=== PATIENT | male | born 1945 | race Hispanic/Latino ===

== ENCOUNTER → 2019-10-29 | Outpatient (CLI) | payer OTHER, MEDICARE | END | disposition home or self-care (01) | LOC: RAH 15:20 | PROVIDERS: ATTEND Nurse Practitioner Family | DX: J84.10 Pulmonary fibrosis, unspecified (principal); R91.8 Other nonspecific abnormal finding of lung field; M47.815 Spondylosis without myelopathy or radiculopathy, thoracolumbar region | CPT/HCPCS: 71046 ==

== ENCOUNTER → 2020-05-07 | Outpatient (CLI) | payer OTHER, MEDICARE | END | disposition home or self-care (01) | LOC: RAH 11:45 | PROVIDERS: ATTEND Internal Medicine | DX: R06.02 Shortness of breath (principal); M47.814 Spondylosis without myelopathy or radiculopathy, thoracic region | CPT/HCPCS: 71046 ==

== ENCOUNTER 2020-06-27 14:00 | Emergency (ER) | payer OTHER, MEDICARE ==
[2020-06-27] MEDS ORDERED: PROPOFOL 1000 MG/100 ML 0 ML IV ONE (15:44)
[2020-06-27] MEDS ORDERED: PROPOFOL 10 MG/ML 20ML VIAL IV ONE (15:59)
== END 2020-06-27 19:02 | disposition home or self-care (01) ==
LOC: EDH 14:00
DX: S43.005A Unspecified dislocation of left shoulder joint, initial encounter (principal); E11.9 Type 2 diabetes mellitus without complications; I10 Essential (primary) hypertension; Z87.891 Personal history of nicotine dependence; W18.39XA Other fall on same level, initial encounter; Y93.89 Activity, other specified; Y92.89 Other specified places as the place of occurrence of the external cause; Y99.8 Other external cause status
CPT/HCPCS: 23650; 70450; 73020; 73030; 99285; J2704

== ENCOUNTER → 2020-12-17 | Outpatient (CLI) | payer OTHER, MEDICARE | END | disposition home or self-care (01) | LOC: RAH 13:13 | PROVIDERS: ATTEND Internal Medicine | DX: J84.10 Pulmonary fibrosis, unspecified (principal) | CPT/HCPCS: 71046 ==

== ENCOUNTER → 2021-10-06 | Outpatient (CLI) | payer OTHER | END | disposition home or self-care (01) | LOC: SHCH 13:16 | PROVIDERS: ATTEND Internal Medicine Cardiovascular Disease | DX: I25.118 Atherosclerotic heart disease of native coronary artery with other forms of angina pectoris (principal); E78.5 Hyperlipidemia, unspecified; E11.9 Type 2 diabetes mellitus without complications | CPT/HCPCS: 93306; 93356 ==

== ENCOUNTER → 2021-10-09 | Outpatient (CLI) | payer OTHER ==
[~2021-10-09] MED LIST: REGADENOSON 0.4 MG/5 ML PF SYG IVP SCH
== END | disposition home or self-care (01) ==
LOC: SHCH 07:54
PROVIDERS: ATTEND Internal Medicine Cardiovascular Disease
DX: I25.118 Atherosclerotic heart disease of native coronary artery with other forms of angina pectoris (principal)
CPT/HCPCS: 78452; 93017; 96374; A9500 ×2; J2785

== ENCOUNTER → 2023-03-18 | Outpatient (CLI) | payer OTHER ==
[2023-03-18 12:28] LABS: ALBUMIN 3.4 g/dL (3.5-5.0); POTASSIUM 4.2 mmol/L (3.5-5.1); TOTAL PROTEIN, SERUM 8.5 g/dL (6.0-8.3)
== END | disposition home or self-care (01) ==
LOC: LAB 08:29
PROVIDERS: ATTEND Internal Medicine Cardiovascular Disease
DX: I10 Essential (primary) hypertension (principal); R06.02 Shortness of breath
CPT/HCPCS: 36415; 80053

== ENCOUNTER → 2023-03-28 | Outpatient (CLI) | payer OTHER ==
[2023-03-28 12:30] LABS: ALBUMIN 3.2 g/dL (3.5-5.0); CREATININE 1.2 mg/dL (0.5-1.5); POTASSIUM 4.2 mmol/L (3.5-5.1); TOTAL PROTEIN, SERUM 8.4 g/dL (6.0-8.3)
== END | disposition home or self-care (01) ==
LOC: LAB 08:22
PROVIDERS: ATTEND Internal Medicine Cardiovascular Disease
DX: I25.110 Atherosclerotic heart disease of native coronary artery with unstable angina pectoris (principal)
CPT/HCPCS: 36415; 80053; 83880; 84484

== ENCOUNTER → 2023-03-30 | Outpatient (CLI) | payer OTHER ==
[~2023-03-30] MED LIST changes: +IOHEXOL 350 MG/ML 100ML INFUS..BTL IV ONE; +METOPROLOL TARTRATE 1 MG/ML 5ML VIAL IV ONE; -REGADENOSON 0.4 MG/5 ML PF SYG IVP SCH
== END | disposition home or self-care (01) ==
LOC: RAH 08:39
PROVIDERS: ATTEND Internal Medicine Cardiovascular Disease
DX: I25.110 Atherosclerotic heart disease of native coronary artery with unstable angina pectoris (principal); J47.9 Bronchiectasis, uncomplicated
CPT/HCPCS: 75574; J3490; Q9967

== ENCOUNTER → 2023-04-06 | Outpatient (CLI) | payer OTHER | END | disposition home or self-care (01) | LOC: SHCH 12:29 | PROVIDERS: ATTEND Internal Medicine Cardiovascular Disease | DX: I25.119 Atherosclerotic heart disease of native coronary artery with unspecified angina pectoris (principal); I51.89 Other ill-defined heart diseases | CPT/HCPCS: 93306 ==

== ENCOUNTER → 2023-06-30 | Outpatient (CLI) | payer OTHER | END | disposition home or self-care (01) | LOC: RAH 12:46 | PROVIDERS: ATTEND Internal Medicine | DX: J84.10 Pulmonary fibrosis, unspecified (principal); J44.9 Chronic obstructive pulmonary disease, unspecified; M47.815 Spondylosis without myelopathy or radiculopathy, thoracolumbar region | CPT/HCPCS: 71046 ==

== ENCOUNTER → 2023-07-01 | Outpatient (CLI) | payer OTHER | END | disposition home or self-care (01) | LOC: RAH 07:44 | PROVIDERS: ATTEND Internal Medicine | DX: R10.9 Unspecified abdominal pain (principal); R63.4 Abnormal weight loss | CPT/HCPCS: 76700 ==

== ENCOUNTER → 2023-07-13 | Outpatient (CLI) | payer OTHER | END | disposition home or self-care (01) | LOC: RAH 12:58 | PROVIDERS: ATTEND Internal Medicine | DX: J84.10 Pulmonary fibrosis, unspecified (principal); I25.10 Atherosclerotic heart disease of native coronary artery without angina pectoris; J47.9 Bronchiectasis, uncomplicated; I70.0 Atherosclerosis of aorta; R10.9 Unspecified abdominal pain; R63.4 Abnormal weight loss | CPT/HCPCS: 71250; 74176 ==

== ENCOUNTER 2023-09-12 08:32 | Observation (INO) | payer OTHER ==
[2023-09-08 13:14] LABS: BASOPHILS # (AUTO) 0.02 K/uL (0.00-0.20); BASOPHILS % (AUTO) 0.2 % (0.0-5.0); EOSINOPHILS # (AUTO) 0.74 K/uL (0.00-0.70); HEMATOCRIT 45.3 % (42-54); IMMATURE GRANULOCYTE ABSOLUTE 0.07 K/uL (0-1); LYMPHOCYTES # (AUTO) 3.2 K/uL (1.0-4.8); MEAN CORPUSCULAR HEMOGLOBIN 30.9 pg (27.0-33.0); MEAN CORPUSCULAR HGB CONC 31.3 g/dL (32.0-36.0); MEAN CORPUSCULAR VOLUME 98.5 fL (79-99); MONOCYTES # (AUTO) 0.8 K/uL (0.1-1.0); MONOCYTES % (AUTO) 6.7 % (3.0-13.0); NEUTROPHILS # (AUTO) 7.4 K/uL (1.8-7.7); NEUTROPHILS % (AUTO) 60.5 % (40.0-77.0); PLATELET COUNT (AUTO) 354 K/uL (130-400); RED CELL DISTRIBUTION WIDTH 13.5 % (11.0-15.5); WHITE BLOOD COUNT (AUTO) 12.3 K/uL (4.8-10.8)
[2023-09-08 13:26] LABS: CREATININE 1.1 mg/dL (0.5-1.5); POTASSIUM 4.8 mmol/L (3.5-5.1)
[2023-09-08 13:27] LABS: INR 0.98 (0.85-1.15); PROTHROMBIN TIME 11.4 SEC (9.6-11.6)
[2023-09-08 13:29] LABS: PARTIAL THROMBOPLASTIN TIME 28.8 SEC (26.3-35.5)
[2023-09-08 14:10] VITALS: BP 131/77; PULSE 100; RESP 20
[2023-09-12] VITALS (23 sets, daily range): BP systolic 105–136; BP diastolic 62–81; PULSE 77–108; RESP 10–24; O2SAT 95–96
[~2023-09-12] VITALS: Ht 162.6 cm; Wt 49.6 kg
[~2023-09-12 08:32] MED LIST changes: +ALBU2.5V2 IH; +ASPI-1443 PO; +EMPA25TA PO; +FLUT1AER IH; -IOHEXOL 350 MG/ML 100ML INFUS..BTL IV ONE; +LEVA15HF3 IH; +LEVO-70 PO; +LEVO75CA5 PO; +LORA10TA7 PO; +METF-446 PO; -METOPROLOL TARTRATE 1 MG/ML 5ML VIAL IV ONE; +NINT100C PO; +SIMV-43 PO; +TAMS-1 PO
[2023-09-12] MEDS ORDERED: 0.9%NACL 1000ML 1,000 ML IV ONE (08:54)
[2023-09-12] MEDS ORDERED: LIDOCAINE HCL 400MG/20ML VIAL ONE (10:20)
[2023-09-12] MEDS ORDERED: BIVALIRUDIN 250 MG/VIAL IV ONE (10:20)
[2023-09-12] MEDS ORDERED: HEPARIN 10,000 UNIT/10ML (1,000 UNIT/ML) VIAL ONE (10:20)
[2023-09-12] MEDS ORDERED: IOHEXOL 350 MG/ML 100ML INFUS..BTL IV ONE (10:21)
[2023-09-12] MEDS ORDERED: MIDAZOLAM HCL 1 MG/ML 2ML VIAL ONE (10:21)
[2023-09-12] MEDS ORDERED: NITROGLYCERIN 50MG/D5W 250ML 1 BOT ONE (10:21)
[2023-09-12] MEDS ORDERED: FENTANYL CITRATE PF 50 MCG/1 ML 2ML VIAL ONE (10:21)
[2023-09-12] MEDS ORDERED: IOHEXOL-350 50ML VIAL IV ONE (10:21)
[2023-09-12] MEDS ORDERED: CLOPIDOGREL 300MG TAB ONE (11:27)
[2023-09-12] MEDS ORDERED: ASPIRIN 325MG EC TAB PO ONE (11:27)
[2023-09-12] MEDS ORDERED: HYDRALAZINE 20MG/ML VIAL IV PRN (12:00)
[2023-09-12] MEDS ORDERED: NITROGLYCERIN 0.4 MG SL TAB SL PRN (12:00)
[2023-09-12] MEDS ORDERED: 0.9%NACL 1000ML 1,000 ML IV SCH (12:00)
[2023-09-12] MEDS ORDERED: DEXTROSE 50%-WATER 50 ML DISP.SYRIN IV PRN (12:00)
[2023-09-12] MEDS ORDERED: GLUCAGON 1MG KIT 1 MG ML IM PRN (12:00)
[2023-09-12] MEDS ORDERED: ATROPINE 1MG SYG IVP ONE (14:19)
[2023-09-12] MEDS: INSULIN HUMULIN R 100 UNIT/ML 3ML SQ SCH ×2 (16:30→21:00)
[2023-09-12] MEDS ORDERED: ALBUTEROL 0.083% 2.5 MG/3 ML INH IH PRN ×2 (17:30→19:30)
[2023-09-12] MEDS: PHARMACY COMMUNICATION MISC SCH ×2 (17:30→18:30)
[2023-09-12] MEDS ORDERED: LEVALBUTEROL TARTRATE IH PRN (19:00)
[2023-09-13] VITALS (7 sets, daily range): BP systolic 106–132; BP diastolic 60–78; PULSE 79–115; RESP 18–20; O2SAT 96
[2023-09-13] MEDS: INSULIN HUMULIN R 100 UNIT/ML 3ML SQ SCH ×3 (05:52→16:10)
[2023-09-13] MEDS ORDERED: LEVOTHYROXINE 75 MCG TABLET PO SCH (06:00)
[2023-09-13] MEDS ORDERED: ASPIRIN 81 MG EC TAB PO SCH (09:00)
[2023-09-13] MEDS ORDERED: TAMSULOSIN HCL 0.4 MG CAP.ER.24H PO SCH (09:00)
[2023-09-13] MEDS ORDERED: BREO ELLIPTA 100-25 MCG INH IH SCH (09:00)
[2023-09-13] MEDS ORDERED: SIMVASTATIN 20 MG TABLET PO SCH (09:00)
[2023-09-13] MEDS ORDERED: METFORMIN HCL 500 MG TABLET PO SCH (09:00)
[2023-09-13] MEDS ORDERED: EMPAGLIFLOZIN 25MG TABLET PO SCH (09:00)
[2023-09-13] MEDS ORDERED: CLOPIDOGREL 75MG TAB PO SCH (09:00)
[2023-09-13 11:45] LABS: HEMATOCRIT 42.2 % (42-54); MEAN CORPUSCULAR HEMOGLOBIN 30.6 pg (27.0-33.0); MEAN CORPUSCULAR VOLUME 95.7 fL (79-99); RED BLOOD CELL COUNT(AUTO) 4.41 MIL/uL (4.50-6.20); RED CELL DISTRIBUTION WIDTH 13.2 % (11.0-15.5); WHITE BLOOD COUNT (AUTO) 10.6 K/uL (4.8-10.8)
[2023-09-13 12:19] LABS: ALBUMIN 2.7 g/dL (3.5-5.0); BILIRUBIN,TOTAL 0.8 mg/dL (0.2-1.0); CREATININE 0.9 mg/dL (0.5-1.5); POTASSIUM 3.7 mmol/L (3.5-5.1); TOTAL PROTEIN, SERUM 6.9 g/dL (6.0-8.3)
[2023-09-13] MEDS ORDERED: CLOP-31 PO (15:27)
[2023-09-13] MEDS ORDERED: Nitroglycerin 0.4MG Sl Tab SL (15:27)
== END 2023-09-13 18:45 | disposition home or self-care (01) ==
LOC: DAH 08:32 → DAHIP 08:33 → 2AH 13:22
PROVIDERS: ADMIT Internal Medicine; ATTEND Internal Medicine
DX: I25.110 Atherosclerotic heart disease of native coronary artery with unstable angina pectoris (principal); J84.10 Pulmonary fibrosis, unspecified; E83.52 Hypercalcemia; R94.31 Abnormal electrocardiogram [ECG] [EKG]; J44.9 Chronic obstructive pulmonary disease, unspecified; E11.9 Type 2 diabetes mellitus without complications; I10 Essential (primary) hypertension; E78.5 Hyperlipidemia, unspecified; E03.9 Hypothyroidism, unspecified; Z79.84 Long term (current) use of oral hypoglycemic drugs; Z79.82 Long term (current) use of aspirin
CPT/HCPCS: 80048; 85025; 85610; 85730; 36415 ×2; 71045; 93005; 93458; 82948 ×7; 83735; 80053; 85027; C1887; C1894 ×2; C1769; C1725; C1874; Q9965; G0378 ×31; J3010; J3490 ×2; J7030; J2250; J1644; J0583; Q9967 ×2; A4215; A4223 ×3; A4222; A4221; A4663; A4216; A4606; C9600; 99156; 99157; J0461

== ENCOUNTER 2024-01-31 01:59 | Inpatient (IN) | payer OTHER ==
[~2024-01-31] VITALS: Ht 160 cm; Wt 55.0 kg
[2024-01-31] VITALS (57 sets, daily range): BP systolic 69–141; BP diastolic 45–79; PULSE 60–140; RESP 20–31; TEMP 100.1; O2SAT 93–100
[~2024-01-31 01:59] MED LIST changes: +CLOP-31 PO; -LORA10TA7 PO; +Nitroglycerin 0.4MG Sl Tab SL
[2024-01-31] MEDS: PROPOFOL 1000 MG/100 ML 100 ML IV SCH (02:15)
[2024-01-31 02:20] LABS: ABG BASE EXCESS -22.6 mmol/L (-2.0-3.0); ABG HCO3 9.5 mmol/L (21.0-28.0); ABG OXYGEN SATURATION 99.5 % (95.0-99.0); ABG PCO2 47 mmHg (35-48); ABG PH 6.929 (7.35-7.450); CARBON MONOXIDE 0.8; HHb 0.5; PO2, ARTERIAL BG 492.2 mmHg (83.0-108.0); VENT MODE, BG AMBU LR (ROOM AIR)
[2024-01-31] MEDS: ONDANSETRON 4MG INJ ONE (02:28)
[2024-01-31] MEDS: ACETAMINOPHEN 650 MG SUPPOSITORY RC ONE ×2 (02:28→02:30)
[2024-01-31] MEDS: PROPOFOL 1000 MG/100 ML 100 ML IV ONE (02:28)
[2024-01-31 02:40] LABS: BASOPHILS # (AUTO) 0.09 K/uL (0.00-0.20); BASOPHILS % (AUTO) 0.5 % (0.0-5.0); EOSINOPHILS # (AUTO) 0.47 K/uL (0.00-0.70); EOSINOPHILS % (AUTO) 2.9 % (0.0-8.0); HEMATOCRIT 38.3 % (42-54); IMMATURE GRANULOCYTE ABSOLUTE 0.12 K/uL (0-1); LYMPHOCYTES % (AUTO) 42.7 % (21.0-51.0); MEAN CORPUSCULAR HEMOGLOBIN 30.8 pg (27.0-33.0); MEAN CORPUSCULAR HGB CONC 30.5 g/dL (32.0-36.0); MEAN CORPUSCULAR VOLUME 100.8 fL (79-99); MONOCYTES # (AUTO) 1.1 K/uL (0.1-1.0); MONOCYTES % (AUTO) 6.9 % (3.0-13.0); NEUTROPHILS # (AUTO) 7.6 K/uL (1.8-7.7); NEUTROPHILS % (AUTO) 46.3 % (40.0-77.0); NUCLEATED RED BLOOD CELLS 0.1 % (0.0-0.19); PLATELET COUNT (AUTO) 243 K/uL (130-400); RED CELL DISTRIBUTION WIDTH 13.5 % (11.0-15.5); WHITE BLOOD COUNT (AUTO) 16.4 K/uL (4.8-10.8)
[2024-01-31 02:44] LABS: APPEARANCE,URINE CLEAR (CLEAR); BILIRUBIN,URINE NEGATIVE (NEGATIVE); COLOR,URINE YELLOW (YELLOW); GLUCOSE, URINE (UA) 300 mg/dL (NEGATIVE); KETONES,URINE 5 mg/dL (NEGATIVE); LEUKOCYTE ESTERASE ,URINE NEGATIVE Leu/uL (NEGATIVE); NITRATE,URINE NEGATIVE (NEGATIVE); OCCULT BLOOD,URINE MODERATE (NEGATIVE); PROTEIN,URINE 70 mg/dL (NEGATIVE); UROBILINOGEN,URINE 3 mg/dL (0.2-1.0)
[2024-01-31] MEDS: SOLU-MEDROL 125MG VIAL IVP ONE (02:50)
[2024-01-31] MEDS: CEFTRIAXONE 1G VIAL 2 GM in 0.9%NACL 100ML 100 ML IV ONE (02:50)
[2024-01-31] MEDS: [UNRECOGNIZED DRUG - OTHER] IV ONE (02:50)
[2024-01-31] MEDS: CEFTRIAXONE 1G VIAL ONE (02:51)
[2024-01-31 02:58] LABS: CREATININE 1.6 mg/dL (0.5-1.5); POTASSIUM 4.4 mmol/L (3.5-5.1)
[2024-01-31] MEDS: ETOMIDATE 20MG VIAL IVP ONE (02:58)
[2024-01-31 02:59] LABS: SARS-CoV-2, RNA, NAAT NEGATIVE SARS CoV-2 (NEGATIVE)
[2024-01-31] MEDS: PROPOFOL 1000 MG/100 ML IV PRN (02:59)
[2024-01-31] MEDS: ONDANSETRON 4MG INJ IVP ONE (02:59)
[2024-01-31] MEDS: CEFTRIAXONE 2GM VIAL IVPB SCH (03:00)
[2024-01-31 03:01] LABS: B-TYPE NATRIURETIC PEPTIDE 401 pg/mL (0-100)
[2024-01-31 03:02] LABS: INFLUENZA TYPE A Negative For Type A (NEGATIVE); INFLUENZA TYPE B Negative For Type B (NEGATIVE)
[2024-01-31 03:03] LABS: ALBUMIN 2.3 g/dL (3.5-5.0); BILIRUBIN,TOTAL 0.5 mg/dL (0.2-1.0); MAGNESIUM 2.1 mg/dL (1.80-2.40); TOTAL PROTEIN, SERUM 6.6 g/dL (6.0-8.3)
[2024-01-31 03:04] LABS: ADD UA MICROSCOPIC YES
[2024-01-31 03:07] LABS: RBC,URINE 26-50 /HPF (0-1)
[2024-01-31 03:08] LABS: BACTERIA,URINE Rare /HPF (None Seen); SQUAMOUS EPITHELIAL CELL,UR Rare /HPF (0-2)
[2024-01-31] MEDS: AZITHROMYCIN 500MG+NS 250ML 250 ML IVPB SCH (03:58)
[2024-01-31] MEDS: INSULIN HUMULIN R 100 UNIT/ML 3ML IV ONE (04:17)
[2024-01-31] MEDS: SOLU-MEDROL 40MG VIAL IVP SCH ×2 (04:30→12:04)
[2024-01-31 04:49] LABS: ABG BASE EXCESS -15.4 mmol/L (-2.0-3.0); ABG HCO3 17.6 mmol/L (21.0-28.0); ABG OXYGEN SATURATION 92.3 % (95.0-99.0); ABG PCO2 76 mmHg (35-48); PO2, ARTERIAL BG 96.2 mmHg (83.0-108.0); VENT MODE, BG ACVC (ROOM AIR)
[2024-01-31] MEDS: SODIUM BICARB 50MEQ 50ML VIAL IV ONE (04:56)
[2024-01-31] MEDS ORDERED: SODIUM BICARB 50MEQ 50ML VIAL IV ONE (05:00)
[2024-01-31] MEDS ORDERED: ACETAMINOPHEN 325 MG TAB PO PRN ×2 (05:00)
[2024-01-31] MEDS: 0.9%NACL 1000ML 1,000 ML IV SCH (05:17)
[2024-01-31] MEDS ORDERED: GLUCAGON 1MG KIT 1 MG ML IM PRN (05:30)
[2024-01-31] MEDS ORDERED: DEXTROSE 50%-WATER 50 ML DISP.SYRIN IV PRN (05:30)
[2024-01-31] MEDS: MEROPENEM 1 GM in 0.9%NACL 100ML 100 ML IV SCH (05:33)
[2024-01-31] MEDS: HEPARIN 5,000 UNIT VIAL SQ SCH (05:33)
[2024-01-31] MEDS ORDERED: PHENYLEPHRINE HCL 50 MG in 0.9% NACL 250ML 245 ML IV PRN (06:00)
[2024-01-31] MEDS ORDERED: PHENYLEPHRINE HCL 10 MG in 0.9% NACL 250ML 250 ML IV PRN (06:00)
[2024-01-31] MEDS ORDERED: INSULIN HUMULIN R 100 UNIT/ML 3ML SQ SCH (06:00)
[2024-01-31] MEDS: MEROPENEM 1 GM VIAL ONE (06:18)
[2024-01-31] MEDS: [UNRECOGNIZED DRUG - MIXTURE] IVP SCH (06:28)
[2024-01-31] MEDS ORDERED: [UNRECOGNIZED DRUG - MIXTURE] IVP SCH (06:30)
[2024-01-31] MEDS: INSULIN HUMULIN R 100 UNIT/ML 3ML SQ SCH (06:38)
[2024-01-31] MEDS ORDERED: FENTANYL CITRATE PF 0.05 MG/ML 2,500 MCG in 0.9% NACL 250ML 200 ML IV PRN (07:00)
[2024-01-31] MEDS ORDERED: MIDAZOLAM HCL 50 MG in 0.9%NACL 50ML 50 ML IV SCH (07:00)
[2024-01-31] MEDS: MIDAZOLAM 50MG-0.9% NS 50ML 50 ML IV SCH (07:03)
[2024-01-31] MEDS: FENTANYL 2500MCG+NS 250ML 250 ML IV SCH (07:03)
[2024-01-31] MEDS: IPRATROPIUM/ALBUTEROL SULFATE 3 ML SOLUTION IH SCH ×2 (07:13→11:57)
[2024-01-31 07:22] LABS: BASOPHILS # (AUTO) 0.04 K/uL (0.00-0.20); BASOPHILS % (AUTO) 0.3 % (0.0-5.0); EOSINOPHILS # (AUTO) 0.02 K/uL (0.00-0.70); EOSINOPHILS % (AUTO) 0.1 % (0.0-8.0); HEMATOCRIT 39.8 % (42-54); IMMATURE GRANULOCYTE ABSOLUTE 0.07 K/uL (0-1); LYMPHOCYTES # (AUTO) 0.6 K/uL (1.0-4.8); LYMPHOCYTES % (AUTO) 4.3 % (21.0-51.0); MEAN CORPUSCULAR HEMOGLOBIN 31.4 pg (27.0-33.0); MEAN CORPUSCULAR HGB CONC 32.4 g/dL (32.0-36.0); MEAN CORPUSCULAR VOLUME 96.8 fL (79-99); MONOCYTES # (AUTO) 0.8 K/uL (0.1-1.0); MONOCYTES % (AUTO) 5.3 % (3.0-13.0); NEUTROPHILS # (AUTO) 13.3 K/uL (1.8-7.7); NEUTROPHILS % (AUTO) 89.5 % (40.0-77.0); PLATELET COUNT (AUTO) 234 K/uL (130-400); RED BLOOD CELL COUNT(AUTO) 4.11 MIL/uL (4.50-6.20); RED CELL DISTRIBUTION WIDTH 13.6 % (11.0-15.5); WHITE BLOOD COUNT (AUTO) 14.8 K/uL (4.8-10.8)
[2024-01-31 07:27] LABS: ABG BASE EXCESS 0.5 mmol/L (-2.0-3.0); ABG HCO3 28.3 mmol/L (21.0-28.0); ABG OXYGEN SATURATION 98.2 % (95.0-99.0); ABG PCO2 60 mmHg (35-48); ABG PH 7.291 (7.35-7.450); HHb 1.8; PO2, ARTERIAL BG 131.4 mmHg (83.0-108.0); VENT MODE, BG AC (ROOM AIR)
[2024-01-31 07:34] LABS: ALBUMIN 2.2 g/dL (3.5-5.0); CREATININE 1.4 mg/dL (0.5-1.5); POTASSIUM 4.4 mmol/L (3.5-5.1); TOTAL PROTEIN, SERUM 6.5 g/dL (6.0-8.3)
[2024-01-31 07:40] LABS: B-TYPE NATRIURETIC PEPTIDE 857 pg/mL (0-100)
[2024-01-31] MEDS: FAMOTIDINE 20MG VIAL IV SCH (08:56)
[2024-01-31 09:26] LABS: INR 0.99 (0.85-1.15); PROTHROMBIN TIME 11.5 SEC (9.6-11.6)
[2024-01-31 09:27] LABS: PARTIAL THROMBOPLASTIN TIME 27.5 SEC (26.3-35.5)
[2024-01-31] MEDS: PHENYLEPHRINE HCL 10 MG in 0.9% NACL 250ML 250 ML IV PRN (09:57)
[2024-01-31] MEDS ORDERED: POTASSIUM CHLORIDE 10MEQ/100ML 100 ML IV PRN (10:30)
[2024-01-31] MEDS ORDERED: 0.9%NACL 1000ML 1,000 ML IV SCH (10:30)
[2024-01-31] MEDS ORDERED: INSULIN REGULAR, HUMAN 3ML 100 UNIT in 0.9%NACL 100ML 100 ML IV SCH (10:30)
[2024-01-31] MEDS ORDERED: MAGNESIUM 2GM PREMIX 50ML 50 ML IV SCH (10:30)
[2024-01-31 10:58] LABS: CREATININE 1.3 mg/dL (0.5-1.5); POTASSIUM 4.3 mmol/L (3.5-5.1)
[2024-01-31] MEDS: D5W-1/2 NS/20MEQ KCL 1,000 ML IV SCH (12:00)
[2024-01-31] MEDS: 0.9%NACL 1000ML 1,137 ML IV ONE (12:04)
[2024-01-31] MEDS: ASPIRIN 325MG TAB PO ONE (12:04)
[2024-01-31] MEDS: CHLORHEXIDINE GLUCONATE 15 ML MOUTHWASH MM SCH (12:05)
[2024-01-31] MEDS: ENOXAPARIN SODIUM 60 MG/0.6 ML SQ SCH (12:05)
[2024-01-31] MEDS ORDERED: ROCURONIUM BROMIDE 10MG/1ML 5ML VL IV ONE (12:39)
[2024-01-31] MEDS ORDERED: ETOMIDATE 20MG VIAL IVP ONE (12:39)
[2024-01-31] MEDS ORDERED: IOHEXOL 350 MG/ML 100ML INFUS..BTL IV ONE (14:57)
[2024-01-31] MEDS ORDERED: IPRATROPIUM/ALBUTEROL SULFATE 3 ML SOLUTION IH SCH (16:00)
[2024-01-31 16:19] LABS: ABG BASE EXCESS -2.5 mmol/L (-2.0-3.0); ABG HCO3 23.4 mmol/L (21.0-28.0); ABG OXYGEN SATURATION 97.5 % (95.0-99.0); ABG PCO2 45 mmHg (35-48); ABG PH 7.338 (7.35-7.450); CARBON MONOXIDE 0.6; DEVICE COMMENT RR; HHb 2.5; PO2, ARTERIAL BG 108.1 mmHg (83.0-108.0); VENT MODE, BG AC (ROOM AIR)
[2024-01-31 16:28] LABS: POTASSIUM 3.7 mmol/L (3.5-5.1)
[2024-01-31] MEDS: POTASSIUM CHLORIDE 20MEQ/100ML 100 ML IV PRN (16:56)
[2024-01-31] MEDS ORDERED: MIRT7.5T11 PO (17:35)
[2024-01-31] MEDS ORDERED: LEVO75CA5 PO (17:35)
[2024-01-31] MEDS ORDERED: CLOP75TA32 PO (17:35)
[2024-01-31] MEDS ORDERED: AEC81 PO (17:35)
[2024-01-31] MEDS ORDERED: LORA10TA7 PO (17:35)
[2024-01-31] MEDS ORDERED: PRED10TA3 PO (17:35)
[2024-01-31] MEDS ORDERED: METF-446 PO (17:35)
[2024-01-31] MEDS ORDERED: EMPA25TA PO (17:35)
[2024-01-31] MEDS ORDERED: TAMS-1 PO (17:35)
[2024-01-31] MEDS ORDERED: SIMV-43 PO (17:35)
[2024-01-31] MEDS: ARTIFICIAL TEARS 3.5 GM OINTMENT OU SCH (20:42)
[2024-01-31] MEDS: PHENYLEPHRINE HCL 100 MG in 0.9% NACL 250ML 240 ML IV PRN (21:42)
[2024-02-01] VITALS (60 sets, daily range): BP systolic 93–125; BP diastolic 50–75; PULSE 54–84; RESP 14–36; O2SAT 95–100
[2024-02-01] MEDS: INSULIN HUMULIN R 100 UNIT/ML 3ML SQ SCH
[2024-02-01 04:39] LABS: HEMATOCRIT 40.7 % (42-54); MEAN CORPUSCULAR HEMOGLOBIN 30.6 pg (27.0-33.0); MEAN CORPUSCULAR HGB CONC 30.5 g/dL (32.0-36.0); MEAN CORPUSCULAR VOLUME 100.5 fL (79-99); RED BLOOD CELL COUNT(AUTO) 4.05 MIL/uL (4.50-6.20); RED CELL DISTRIBUTION WIDTH 13.9 % (11.0-15.5); WHITE BLOOD COUNT (AUTO) 18.6 K/uL (4.8-10.8)
[2024-02-01 05:03] LABS: ALBUMIN 2.1 g/dL (3.5-5.0); BILIRUBIN,TOTAL 0.3 mg/dL (0.2-1.0); CREATININE 0.9 mg/dL (0.5-1.5); MAGNESIUM 1.8 mg/dL (1.80-2.40); POTASSIUM 4.6 mmol/L (3.5-5.1); TOTAL PROTEIN, SERUM 6.3 g/dL (6.0-8.3)
[2024-02-01] MEDS: LEVOTHYROXINE 75 MCG TABLET PO SCH (07:35)
[2024-02-01] MEDS: MAGNESIUM 2GM PREMIX 50ML 50 ML IV PRN (07:36)
[2024-02-01] MEDS: SIMVASTATIN 20 MG TABLET PO SCH (08:14)
[2024-02-01] MEDS: CLOPIDOGREL 75MG TAB PO SCH (08:14)
[2024-02-01] MEDS: TAMSULOSIN HCL 0.4 MG CAP.ER.24H PO SCH (08:14)
[2024-02-01] MEDS: ASPIRIN 81 MG EC TAB PO SCH (08:14)
[2024-02-01] MEDS: ENOXAPARIN SODIUM 40 MG/0.4 ML SYRINGE SQ SCH (08:15)
[2024-02-01 11:09] LABS: ABG BASE EXCESS -5.8 mmol/L (-2.0-3.0); ABG HCO3 19.2 mmol/L (21.0-28.0); ABG OXYGEN SATURATION 98.3 % (95.0-99.0); ABG PCO2 36 mmHg (35-48); ABG PH 7.342 (7.35-7.450); DEVICE COMMENT LRMIRKA; PO2, ARTERIAL BG 122.3 mmHg (83.0-108.0); VENT MODE, BG AC (ROOM AIR)
[2024-02-01] MEDS: SODIUM BICARB 50MEQ 50ML VIAL 50 ML ONE (11:26)
[2024-02-01 12:40] LABS: ABG OXYGEN SATURATION 97.8 % (95.0-99.0); ABG PCO2 34 mmHg (35-48); ABG PH 7.389 (7.35-7.450); CPAP, BG 5 cm H2O; DEVICE COMMENT RRMIRKA; PO2, ARTERIAL BG 103.7 mmHg (83.0-108.0); VENT MODE, BG AC (ROOM AIR)
[2024-02-01 14:26] LABS: ABG BASE EXCESS -1.7 mmol/L (-2.0-3.0); ABG HCO3 23.3 mmol/L (21.0-28.0); ABG OXYGEN SATURATION 98.9 % (95.0-99.0); ABG PCO2 41 mmHg (35-48); ABG PH 7.378 (7.35-7.450); DEVICE COMMENT LRMIRKA; VENT MODE, BG CAFM (ROOM AIR)
[2024-02-01] MEDS: SOLU-MEDROL 40MG VIAL IVP SCH (23:32)
[2024-02-02] VITALS (48 sets, daily range): BP systolic 80–144; BP diastolic 35–63; PULSE 55–88; RESP 15–36; O2SAT 96–99
[2024-02-02] MEDS: GUAIFENESIN SUGAR-FREE 100 MG/5 ML UDCUP PO PRN (02:23)
[2024-02-02 05:05] LABS: HEMATOCRIT 33.5 % (42-54); MEAN CORPUSCULAR HEMOGLOBIN 30.7 pg (27.0-33.0); MEAN CORPUSCULAR HGB CONC 31.3 g/dL (32.0-36.0); RED BLOOD CELL COUNT(AUTO) 3.42 MIL/uL (4.50-6.20); RED CELL DISTRIBUTION WIDTH 13.9 % (11.0-15.5); WHITE BLOOD COUNT (AUTO) 11.8 K/uL (4.8-10.8)
[2024-02-02 05:07] LABS: MAGNESIUM 2.3 mg/dL (1.80-2.40); POTASSIUM 4.1 mmol/L (3.5-5.1)
[2024-02-02] MEDS: INSULIN HUMULIN R 100 UNIT/ML 3ML SQ SCH (11:24)
[2024-02-02] MEDS ORDERED: MIDODRINE HCL 5 MG TABLET PO PRN (15:30)
[2024-02-02] MEDS: ONDANSETRON 4MG INJ IV PRN (20:26)
[2024-02-03] VITALS (27 sets, daily range): BP systolic 81–126; BP diastolic 45–80; PULSE 55–90; RESP 17–36; O2SAT 92–98
[2024-02-03] MEDS: BENZONATATE 100 MG CAPSULE PO PRN (11:24)
[2024-02-03] MEDS ORDERED: RENAL DOSE IV PRN (23:00)
[2024-02-04] VITALS (13 sets, daily range): BP systolic 104–136; BP diastolic 55–71; PULSE 66–75; RESP 18–22; O2SAT 94–99
[2024-02-04] MEDS: LEVOFLOXACIN 500 MG/D5W 100 ML 100 ML IV SCH (00:25)
[2024-02-04 03:40] LABS: MEAN CORPUSCULAR HEMOGLOBIN 30.1 pg (27.0-33.0); MEAN CORPUSCULAR VOLUME 94.1 fL (79-99); RED BLOOD CELL COUNT(AUTO) 3.72 MIL/uL (4.50-6.20); RED CELL DISTRIBUTION WIDTH 13.4 % (11.0-15.5); WHITE BLOOD COUNT (AUTO) 7.8 K/uL (4.8-10.8)
[2024-02-04 04:01] LABS: ALBUMIN 2.3 g/dL (3.5-5.0); BILIRUBIN,TOTAL 0.4 mg/dL (0.2-1.0); CREATININE 0.9 mg/dL (0.5-1.5); POTASSIUM 4.1 mmol/L (3.5-5.1); TOTAL PROTEIN, SERUM 6.2 g/dL (6.0-8.3)
[2024-02-04] MEDS: METRONIDAZOLE 500MG/100ML BAG 100 ML IVPB SCH (05:52)
[2024-02-05] VITALS (17 sets, daily range): BP systolic 109–135; BP diastolic 54–65; PULSE 62–91; RESP 14–22; O2SAT 94–97
[2024-02-05 03:39] LABS: HEMATOCRIT 38.9 % (42-54); MEAN CORPUSCULAR HEMOGLOBIN 30.6 pg (27.0-33.0); MEAN CORPUSCULAR HGB CONC 31.6 g/dL (32.0-36.0); MEAN CORPUSCULAR VOLUME 96.8 fL (79-99); RED BLOOD CELL COUNT(AUTO) 4.02 MIL/uL (4.50-6.20); RED CELL DISTRIBUTION WIDTH 13.2 % (11.0-15.5); WHITE BLOOD COUNT (AUTO) 6.8 K/uL (4.8-10.8)
[2024-02-05 03:55] LABS: ALBUMIN 2.5 g/dL (3.5-5.0); BILIRUBIN,TOTAL 0.5 mg/dL (0.2-1.0); CREATININE 0.9 mg/dL (0.5-1.5); POTASSIUM 4.8 mmol/L (3.5-5.1); TOTAL PROTEIN, SERUM 6.5 g/dL (6.0-8.3)
[2024-02-06] VITALS (10 sets, daily range): BP systolic 118–134; BP diastolic 67–77; PULSE 73–94; RESP 18–20; O2SAT 95–99
[2024-02-06 05:41] LABS: HEMATOCRIT 39.8 % (42-54); MEAN CORPUSCULAR HEMOGLOBIN 30.4 pg (27.0-33.0); MEAN CORPUSCULAR HGB CONC 32.7 g/dL (32.0-36.0); RED BLOOD CELL COUNT(AUTO) 4.28 MIL/uL (4.50-6.20); RED CELL DISTRIBUTION WIDTH 13.2 % (11.0-15.5); WHITE BLOOD COUNT (AUTO) 7.5 K/uL (4.8-10.8)
[2024-02-06 06:05] LABS: ALBUMIN 2.6 g/dL (3.5-5.0); BILIRUBIN,TOTAL 0.5 mg/dL (0.2-1.0); MAGNESIUM 1.8 mg/dL (1.80-2.40); POTASSIUM 4.5 mmol/L (3.5-5.1); TOTAL PROTEIN, SERUM 6.8 g/dL (6.0-8.3)
[2024-02-06] MEDS ORDERED: FAMOTIDINE 20MG TAB PO SCH (10:30)
[2024-02-06] MEDS ORDERED: ONDANSETRON 4MG TABLET PO PRN (15:00)
[2024-02-07] VITALS (7 sets, daily range): BP systolic 109–140; BP diastolic 70–73; PULSE 72–91; RESP 17–20; O2SAT 98
[2024-02-07 04:50] LABS: HEMATOCRIT 40.7 % (42-54); MEAN CORPUSCULAR HEMOGLOBIN 30.7 pg (27.0-33.0); MEAN CORPUSCULAR HGB CONC 31.9 g/dL (32.0-36.0); MEAN CORPUSCULAR VOLUME 96.2 fL (79-99); RED BLOOD CELL COUNT(AUTO) 4.23 MIL/uL (4.50-6.20); RED CELL DISTRIBUTION WIDTH 13.4 % (11.0-15.5); WHITE BLOOD COUNT (AUTO) 10.5 K/uL (4.8-10.8)
[2024-02-07 04:55] LABS: CREATININE 1.1 mg/dL (0.5-1.3); MAGNESIUM 1.9 mg/dL (1.80-2.40); POTASSIUM 4.1 mmol/L (3.5-5.1)
[2024-02-07] MEDS: FAMOTIDINE 20MG TAB PO SCH (08:18)
== END 2024-02-07 16:30 | disposition home or self-care (01) | DRG 871 ==
LOC: EDH 01:59 → EDHIP 04:58 → 2BH 05:13 → 2DH 02-03 22:06 → 3DH 02-05 17:42
PROVIDERS: ADMIT Internal Medicine; ATTEND Internal Medicine
PROC: 02HV33Z Insertion of Infusion Device into Superior Vena Cava, Percutaneous Approach (ICD-10-PCS; principal; 2024-01-31)
PROC: B548ZZA Ultrasonography of Superior Vena Cava, Guidance (ICD-10-PCS; 2024-01-31)
PROC: 0BH17EZ Insertion of Endotracheal Airway into Trachea, Via Natural or Artificial Opening (ICD-10-PCS; 2024-02-01)
PROC: 5A1945Z Respiratory Ventilation, 24-96 Consecutive Hours (ICD-10-PCS; 2024-02-01)
DX: A41.9 Sepsis, unspecified organism (principal); E11.10 Type 2 diabetes mellitus with ketoacidosis without coma; R65.21 Severe sepsis with septic shock; J18.9 Pneumonia, unspecified organism; J96.21 Acute and chronic respiratory failure with hypoxia; J96.22 Acute and chronic respiratory failure with hypercapnia; N17.9 Acute kidney failure, unspecified; E44.0 Moderate protein-calorie malnutrition; J44.0 Chronic obstructive pulmonary disease with (acute) lower respiratory infection; E11.65 Type 2 diabetes mellitus with hyperglycemia; Z20.822 Contact with and (suspected) exposure to COVID-19; J84.10 Pulmonary fibrosis, unspecified; E03.9 Hypothyroidism, unspecified; E78.00 Pure hypercholesterolemia, unspecified; I07.1 Rheumatic tricuspid insufficiency; I10 Essential (primary) hypertension; I25.10 Atherosclerotic heart disease of native coronary artery without angina pectoris; N40.0 Benign prostatic hyperplasia without lower urinary tract symptoms; Z87.891 Personal history of nicotine dependence; Z95.5 Presence of coronary angioplasty implant and graft; Z99.81 Dependence on supplemental oxygen; Z79.899 Other long term (current) drug therapy; Z68.21 Body mass index [BMI] 21.0-21.9, adult
CPT/HCPCS: 31500; 36415; 36600; 71045; 71270; 80048; 80053; 81001; 82010; 82435; 82550; 82803; 82947; 82948; 83605; 83735; 83880; 84132; 84145; 84295; 84484; 85018; 85025; 85027; 85378; 85610; 85730; 87040; 87635; 87804; 92950; 93005; 93306; 94002; 94003; 94640; 96365; 96372; 96375; 99291; G0378; J0456; J0696; J1644; J1650; J1815; J1956; J2185; J2371; J2405; J2704; J2920; J2930; J3010; J3475; J3480; J3490; J7030; J7050; Q9967; A9900

== ENCOUNTER 2024-03-15 22:32 | Emergency (ER) | payer OTHER ==
[~2024-03-15] VITALS: Ht 165.1 cm; Wt 52.2 kg
[~2024-03-15 22:32] MED LIST changes: -LEVO-70 PO
[2024-03-15 23:34] LABS: BASOPHILS # (AUTO) 0.05 K/uL (0.00-0.20); BASOPHILS % (AUTO) 0.5 % (0.0-5.0); EOSINOPHILS # (AUTO) 0.38 K/uL (0.00-0.70); EOSINOPHILS % (AUTO) 3.7 % (0.0-8.0); HEMATOCRIT 35.7 % (42-54); IMMATURE GRANULOCYTE ABSOLUTE 0.02 K/uL (0-1); MEAN CORPUSCULAR HEMOGLOBIN 31.1 pg (27.0-33.0); MEAN CORPUSCULAR HGB CONC 33.1 g/dL (32.0-36.0); MEAN CORPUSCULAR VOLUME 94.2 fL (79-99); MONOCYTES # (AUTO) 0.9 K/uL (0.1-1.0); MONOCYTES % (AUTO) 8.6 % (3.0-13.0); PLATELET COUNT (AUTO) 280 K/uL (130-400); RED BLOOD CELL COUNT(AUTO) 3.79 MIL/uL (4.50-6.20); RED CELL DISTRIBUTION WIDTH 14.7 % (11.0-15.5); WHITE BLOOD COUNT (AUTO) 10.3 K/uL (4.8-10.8)
[2024-03-15 23:35] LABS: CREATININE 1.1 mg/dL (0.5-1.3); POTASSIUM 3.9 mmol/L (3.5-5.1)
[2024-03-15 23:39] VITALS: PULSE 98; RESP 22
[2024-03-15 23:39] LABS: ALBUMIN 2.8 g/dL (3.5-5.0); BILIRUBIN,TOTAL 0.6 mg/dL (0.2-1.0); TOTAL PROTEIN, SERUM 7.5 g/dL (6.0-8.3)
[2024-03-15] MEDS: IPRATROPIUM/ALBUTEROL SULFATE 3 ML SOLUTION IH ONE ×2 (23:39→23:48)
[2024-03-15] MEDS: CEFTRIAXONE 1G VIAL IVPB ONE (23:40)
[2024-03-15] MEDS: SOLU-MEDROL 125MG VIAL IVP ONE (23:40)
[2024-03-15] MEDS: AZITHROMYCIN 500MG+NS 250ML 250 ML IVPB SCH (23:44)
[2024-03-16 00:11] LABS: B-TYPE NATRIURETIC PEPTIDE 196 pg/mL (0-100)
[2024-03-16 00:54] VITALS: BP 97/76; PULSE 100; RESP 19; O2SAT 97
[2024-03-16] MEDS ORDERED: CEFU500T67 PO (01:35)
[2024-03-16] MEDS ORDERED: PRED20TA3 PO (01:35)
[2024-03-16] MEDS ORDERED: ALBU2.5V2 IH (01:37)
[2024-03-16] MEDS ORDERED: IPRNEB IH (01:37)
== END 2024-03-16 01:54 | disposition home or self-care (01) ==
LOC: EDH 22:32
DX: J44.1 Chronic obstructive pulmonary disease with (acute) exacerbation (principal); E78.00 Pure hypercholesterolemia, unspecified; E11.9 Type 2 diabetes mellitus without complications; Z79.899 Other long term (current) drug therapy; Z79.84 Long term (current) use of oral hypoglycemic drugs
CPT/HCPCS: 99285; 96365; 96375; 71045; 80053; 83880; 85025; 36415; 93005; 94640; J2919; J0696; J0456

== ENCOUNTER 2024-04-25 02:10 | Observation (INO) | payer OTHER ==
[~2024-04-25] VITALS: Ht 160 cm; Wt 52.9 kg
[2024-04-25] VITALS (12 sets, daily range): BP systolic 94–130; BP diastolic 55–75; PULSE 65–101; RESP 19–24; O2SAT 94–98
[~2024-04-25 02:10] MED LIST changes: +CEFU500T67 PO; +IPRNEB IH; +PRED20TA3 PO
[2024-04-25 02:35] LABS: BASOPHILS # (AUTO) 0.07 K/uL (0.00-0.20); BASOPHILS % (AUTO) 0.6 % (0.0-5.0); EOSINOPHILS # (AUTO) 0.45 K/uL (0.00-0.70); EOSINOPHILS % (AUTO) 3.9 % (0.0-8.0); IMMATURE GRANULOCYTE ABSOLUTE 0.02 K/uL (0-1); LYMPHOCYTES # (AUTO) 2.8 K/uL (1.0-4.8); LYMPHOCYTES % (AUTO) 23.8 % (21.0-51.0); MEAN CORPUSCULAR HGB CONC 31.8 g/dL (32.0-36.0); MEAN CORPUSCULAR VOLUME 97.6 fL (79-99); MONOCYTES # (AUTO) 0.8 K/uL (0.1-1.0); MONOCYTES % (AUTO) 7.2 % (3.0-13.0); NEUTROPHILS # (AUTO) 7.5 K/uL (1.8-7.7); NEUTROPHILS % (AUTO) 64.3 % (40.0-77.0); PLATELET COUNT (AUTO) 283 K/uL (130-400); RED CELL DISTRIBUTION WIDTH 14.1 % (11.0-15.5); WHITE BLOOD COUNT (AUTO) 11.6 K/uL (4.8-10.8)
[2024-04-25 02:38] LABS: ABG BASE EXCESS -2.9 mmol/L (-2.0-3.0); ABG HCO3 20.3 mmol/L (21.0-28.0); ABG OXYGEN SATURATION 96.1 % (95.0-99.0); ABG PCO2 31 mmHg (35-48); ABG PH 7.435 (7.35-7.450); CARBON MONOXIDE 1.4; HHb 3.8; PO2, ARTERIAL BG 83.3 mmHg (83.0-108.0); VENT MODE, BG NC (ROOM AIR)
[2024-04-25 02:43] LABS: CREATININE 1.1 mg/dL (0.5-1.3); POTASSIUM 3.9 mmol/L (3.5-5.1)
[2024-04-25 02:48] LABS: BILIRUBIN,TOTAL 0.5 mg/dL (0.2-1.0); TOTAL PROTEIN, SERUM 8.2 g/dL (6.0-8.3)
[2024-04-25 02:54] LABS: SARS-CoV-2, RNA, NAAT NEGATIVE SARS CoV-2 (NEGATIVE)
[2024-04-25 02:59] LABS: INFLUENZA TYPE A Negative For Type A (NEGATIVE); INFLUENZA TYPE B Negative For Type B (NEGATIVE)
[2024-04-25] MEDS: IPRATROPIUM/ALBUTEROL SULFATE 3 ML SOLUTION IH ONE (03:30)
[2024-04-25] MEDS ORDERED: GUAIFENESIN-DM 200/20 MG 10 ML PO PRN (06:30)
[2024-04-25] MEDS ORDERED: ONDANSETRON 4MG INJ IV PRN (06:30)
[2024-04-25] MEDS ORDERED: NITROGLYCERIN 0.4 MG SL TAB SL PRN (06:30)
[2024-04-25] MEDS ORDERED: ACETAMINOPHEN 325 MG TAB PO PRN ×2 (06:30)
[2024-04-25] MEDS: SOLU-MEDROL 40MG VIAL IVP ONE (06:44)
[2024-04-25] MEDS: LEVOFLOXACIN 500 MG/D5W 100 ML 100 ML IV ONE (06:44)
[2024-04-25 07:30] LABS: BASOPHILS # (AUTO) 0.07 K/uL (0.00-0.20); BASOPHILS % (AUTO) 0.7 % (0.0-5.0); EOSINOPHILS # (AUTO) 0.42 K/uL (0.00-0.70); EOSINOPHILS % (AUTO) 4.4 % (0.0-8.0); HEMATOCRIT 36.3 % (42-54); IMMATURE GRANULOCYTE ABSOLUTE 0.03 K/uL (0-1); LYMPHOCYTES # (AUTO) 2.5 K/uL (1.0-4.8); LYMPHOCYTES % (AUTO) 25.9 % (21.0-51.0); MEAN CORPUSCULAR HEMOGLOBIN 30.8 pg (27.0-33.0); MEAN CORPUSCULAR HGB CONC 32.2 g/dL (32.0-36.0); MEAN CORPUSCULAR VOLUME 95.5 fL (79-99); MONOCYTES # (AUTO) 0.8 K/uL (0.1-1.0); MONOCYTES % (AUTO) 8.3 % (3.0-13.0); NEUTROPHILS # (AUTO) 5.7 K/uL (1.8-7.7); NEUTROPHILS % (AUTO) 60.4 % (40.0-77.0); PLATELET COUNT (AUTO) 256 K/uL (130-400); RED CELL DISTRIBUTION WIDTH 13.9 % (11.0-15.5); WHITE BLOOD COUNT (AUTO) 9.5 K/uL (4.8-10.8)
[2024-04-25 07:47] LABS: ALBUMIN 2.7 g/dL (3.5-5.0); BILIRUBIN,TOTAL 0.3 mg/dL (0.2-1.0); MAGNESIUM 1.6 mg/dL (1.80-2.40); POTASSIUM 3.9 mmol/L (3.5-5.1); TOTAL PROTEIN, SERUM 7.5 g/dL (6.0-8.3)
[2024-04-25 07:58] LABS: B-TYPE NATRIURETIC PEPTIDE 55 pg/mL (0-100)
[2024-04-25] MEDS ORDERED: IPRATROPIUM 0.5 MG/2.5 ML INH IH PRN (09:30)
[2024-04-25] MEDS: IPRATROPIUM/ALBUTEROL SULFATE 3 ML SOLUTION IH SCH (09:46)
[2024-04-25] MEDS ORDERED: ALBUTEROL 0.083% 2.5 MG/3 ML INH IH SCH (10:00)
[2024-04-25] MEDS ORDERED: IOHEXOL-350 75 ML VIAL IV ONE (10:49)
[2024-04-25] MEDS: ENOXAPARIN SODIUM 30 MG/0.3 ML SQ SCH (11:25)
[2024-04-25] MEDS: FAMOTIDINE 20MG TAB PO SCH (11:25)
[2024-04-25] MEDS: NINTEDANIB ESYLATE 100 MG PO SCH (19:38)
[2024-04-25] MEDS: SOLU-MEDROL 40MG VIAL IVP SCH (20:54)
[2024-04-25] MEDS: INSULIN HUMULIN R 100 UNIT/ML 3ML SQ SCH (20:59)
[2024-04-26] VITALS (14 sets, daily range): BP systolic 105–137; BP diastolic 54–64; PULSE 87–106; RESP 18–22; O2SAT 93–97
[2024-04-26 04:19] LABS: BASOPHILS # (AUTO) 0.02 K/uL (0.00-0.20); BASOPHILS % (AUTO) 0.2 % (0.0-5.0); EOSINOPHILS # (AUTO) 0.01 K/uL (0.00-0.70); EOSINOPHILS % (AUTO) 0.1 % (0.0-8.0); HEMATOCRIT 37.8 % (42-54); IMMATURE GRANULOCYTE ABSOLUTE 0.02 K/uL (0-1); LYMPHOCYTES # (AUTO) 0.7 K/uL (1.0-4.8); LYMPHOCYTES % (AUTO) 8.4 % (21.0-51.0); MEAN CORPUSCULAR HEMOGLOBIN 30.7 pg (27.0-33.0); MEAN CORPUSCULAR HGB CONC 32.5 g/dL (32.0-36.0); MEAN CORPUSCULAR VOLUME 94.3 fL (79-99); MONOCYTES # (AUTO) 0.1 K/uL (0.1-1.0); MONOCYTES % (AUTO) 0.6 % (3.0-13.0); NEUTROPHILS # (AUTO) 7.6 K/uL (1.8-7.7); NEUTROPHILS % (AUTO) 90.5 % (40.0-77.0); PLATELET COUNT (AUTO) 278 K/uL (130-400); RED BLOOD CELL COUNT(AUTO) 4.01 MIL/uL (4.50-6.20); RED CELL DISTRIBUTION WIDTH 13.9 % (11.0-15.5); WHITE BLOOD COUNT (AUTO) 8.4 K/uL (4.8-10.8)
[2024-04-26 04:27] LABS: ALBUMIN 2.8 g/dL (3.5-5.0); BILIRUBIN,TOTAL 0.4 mg/dL (0.2-1.0); MAGNESIUM 1.7 mg/dL (1.80-2.40); POTASSIUM 4.5 mmol/L (3.5-5.1); TOTAL PROTEIN, SERUM 8.1 g/dL (6.0-8.3)
[2024-04-26 04:44] LABS: WBC MORPHOLOGY CONSISTENT W/DIFF
[2024-04-26] MEDS: LEVOTHYROXINE 75 MCG TABLET PO SCH (06:18)
[2024-04-26] MEDS: LEVOFLOXACIN 250 MG/D5W 50ML 50 ML IVPB SCH (06:19)
[2024-04-26] MEDS: SIMVASTATIN 20 MG TABLET PO SCH (09:52)
[2024-04-26] MEDS: ASPIRIN 81 MG EC TAB PO SCH (09:53)
[2024-04-26] MEDS: TAMSULOSIN HCL 0.4 MG CAP.ER.24H PO SCH (09:53)
[2024-04-26] MEDS: SODIUM CHLORIDE 3% FOR INHALATION 4 ML/AMP VIAL.NEB IH ONE (11:10)
[2024-04-26] MEDS: MAGNESIUM 2GM PREMIX 50ML 50 ML IV SCH (11:57)
[2024-04-26] MEDS ORDERED: LACE ASSESSMENT (SCORE > 11) MISC SCH (13:30)
[2024-04-27] VITALS (10 sets, daily range): BP systolic 108–125; BP diastolic 53–65; PULSE 76–113; RESP 18–20; O2SAT 97–98
[2024-04-27 05:34] LABS: HEMATOCRIT 35.1 % (42-54); MEAN CORPUSCULAR HEMOGLOBIN 30.6 pg (27.0-33.0); MEAN CORPUSCULAR HGB CONC 32.2 g/dL (32.0-36.0); MEAN CORPUSCULAR VOLUME 95.1 fL (79-99); RED BLOOD CELL COUNT(AUTO) 3.69 MIL/uL (4.50-6.20); RED CELL DISTRIBUTION WIDTH 13.8 % (11.0-15.5); WHITE BLOOD COUNT (AUTO) 11.4 K/uL (4.8-10.8)
[2024-04-27 05:36] LABS: ALBUMIN 2.6 g/dL (3.5-5.0); BILIRUBIN,TOTAL 0.3 mg/dL (0.2-1.0); MAGNESIUM 2.2 mg/dL (1.80-2.40); POTASSIUM 4.4 mmol/L (3.5-5.1); TOTAL PROTEIN, SERUM 7.4 g/dL (6.0-8.3)
[2024-04-27] MEDS: IPRATROPIUM 0.5 MG/2.5 ML INH IH SCH (09:25)
[2024-04-27 09:58] LABS: ABG BASE EXCESS -0.8 mmol/L (-2.0-3.0); ABG HCO3 23.2 mmol/L (21.0-28.0); ABG OXYGEN SATURATION 91.7 % (95.0-99.0); ABG PCO2 37 mmHg (35-48); ABG PH 7.419 (7.35-7.450); PO2, ARTERIAL BG 60.3 mmHg (83.0-108.0); VENT MODE, BG NC (ROOM AIR)
[2024-04-27] MEDS ORDERED: AMOX1TAB16 PO (13:18)
[2024-04-27] MEDS: ACETYLCYSTEINE 10% 100MG/ML 4ML VIAL IH SCH (13:27)
== END 2024-04-27 16:00 | disposition home or self-care (01) ==
LOC: EDH 02:10 → EDHIP 06:01 → 4BH 07:21
PROVIDERS: ADMIT Internal Medicine; ATTEND Internal Medicine
DX: J96.20 Acute and chronic respiratory failure, unspecified whether with hypoxia or hypercapnia (principal); Z20.822 Contact with and (suspected) exposure to COVID-19; J84.112 Idiopathic pulmonary fibrosis; J44.1 Chronic obstructive pulmonary disease with (acute) exacerbation; E11.65 Type 2 diabetes mellitus with hyperglycemia; D64.9 Anemia, unspecified; E46 Unspecified protein-calorie malnutrition; E03.9 Hypothyroidism, unspecified; E78.00 Pure hypercholesterolemia, unspecified; I25.10 Atherosclerotic heart disease of native coronary artery without angina pectoris; I10 Essential (primary) hypertension; N40.0 Benign prostatic hyperplasia without lower urinary tract symptoms; R60.0 Localized edema; Z86.718 Personal history of other venous thrombosis and embolism; Z95.5 Presence of coronary angioplasty implant and graft; Z99.81 Dependence on supplemental oxygen; Z79.899 Other long term (current) drug therapy
CPT/HCPCS: 96376 ×3; 96372 ×3; 96365; 96375; 99285; 82435; 82947; 83735 ×3; 84484 ×2; 84132; 84295; 80053 ×4; 82803 ×2; 83880 ×2; 85025 ×3; 85378; 85730; 85018; 87804 ×2; 82948 ×8; 83605; 36415 ×3; 87635; 71045 ×2; 71270; 93970; 93005; 36600 ×2; 94640; 94664; 96366 ×2; 96367; 87071; 87077; 87186; 87205; 85027; 94667; 94668; G0378 ×57; J1956 ×3; J1650 ×3; Q9967; J3475; J1815 ×2; J7608; J2920